=== PATIENT | male | born 1965 | race Caucasian/White ===

== ENCOUNTER 2018-01-10 11:11 | Day surgery (SDC) | payer MEDICAID ==
[2018-01-03 12:02] VITALS: BMI 33.4
[2018-01-10] MEDS ORDERED: Propofol 10 mg/ml Inj (20 ML) ONE (12:52)
[2018-01-10] MEDS ORDERED: Sodium Chloride 0.9% 1,000 ML IV SCH (13:00)
[2018-01-10 14:13] VITALS: O2SAT 97
[2018-01-10 14:31] VITALS: BP 117/78; PULSE 60; RESP 16; TEMP 98.6
== END 2018-01-10 15:09 | disposition home or self-care (01) ==
LOC: ENDO 11:11
PROVIDERS: ATTEND Internal Medicine
DX: Z12.11 Encounter for screening for malignant neoplasm of colon (principal); D12.4 Benign neoplasm of descending colon; D12.3 Benign neoplasm of transverse colon; D12.2 Benign neoplasm of ascending colon; K57.30 Diverticulosis of large intestine without perforation or abscess without bleeding; K64.8 Other hemorrhoids
CPT/HCPCS: 45380; 88305; J2001; J2704; J7040 ×2

== ENCOUNTER 2018-10-10 15:27 | Outpatient (CLI) | payer MEDICAID | END 2018-10-10 15:28 | disposition home or self-care (01) | LOC: RAD 15:27 ==

== ENCOUNTER 2018-11-29 09:15 | Outpatient (CLI) | payer MEDICAID | END 2018-11-29 09:16 | disposition home or self-care (01) | LOC: RAD 09:15 ==